=== PATIENT | female | born 1995 | race Caucasian/White ===

== ENCOUNTER → 2017-04-08 | Outpatient (CLI) | payer BC ==
--- NOTE | 2017-04-08 09:35 | CT ---
EXAMINATION TYPE: CT ankle LT wo con DATE OF EXAM: 04/08/2017 COMPARISON: NONE HISTORY: Ankle pain, possible talar fracture CT DLP: [address] of the left ankle with reconstruction imaging. TECHNIQUE: Unenhanced CT of the left ankle was performed with bone and soft tissue window settings rivero bmitted in the axial coronal and sagittal planes. At a separate workstation 3-D TR imaging was obtai karthik. FINDINGS: Small chip or avulsion fractures noted to arise from the lateral aspect of the talus. Chip fracture component measures 4 mm in length. There is also a small chip or avulsion fracture arising f rom the lateral malleolar tip measuring 3 mm. There is evidence of soft tissue swelling about the lat eral ankle. Medial malleolus is intact. Ankle mortise is within normal limits IMPRESSION: 1. Small chip or avulsion fractures arising from the lateral malleolar tip and lateral aspect of the talus.
== END | disposition home or self-care (01) ==
LOC: RADCTMAIN 08:41
PROVIDERS: ATTEND Orthopaedic Surgery
DX: S92.152A Displaced avulsion fracture (chip fracture) of left talus, initial encounter for closed fracture (principal)

== ENCOUNTER 2020-07-04 12:31 | Emergency (ER) | payer BC ==
[2020-07-04 12:57] VITALS: RESP 18
[2020-07-04] MEDS ORDERED: SODIUM CHLORIDE 0.9% 1,000 ML IV ONE (13:12)
[2020-07-04 13:56] LABS: Basophils # (A) 0.1 k/uL (0-0.2); Basophils % (A) 1 %; Eosinophils # (A) 0.4 k/uL (0-0.7); Eosinophils % (A) 2 %; HCT 40.8 % (34.0-46.0); HGB 13.8 gm/dL (11.4-16.0); Lymphocytes # (A) 2.9 k/uL (1.0-4.8); Lymphocytes % (A) 19 %; MCH 29.4 pg (25.0-35.0); MCHC 33.8 g/dL (31.0-37.0); MCV 86.8 fL (80.0-100.0); Mean Platelet Volume 7.2; Monocytes # (A) 0.7 k/uL (0-1.0); Monocytes % (A) 4 %; Neutrophils # (A) 11.1 k/uL (1.3-7.7); Neutrophils % (A) 72 %; Platelet Count 367 k/uL (150-450); RDW 11.4 % (11.5-15.5); WBC 15.4 k/uL (3.8-10.6)
--- NOTE | 2020-07-04 13:59 | ED ---
General Adult HPI - General Chief complaint: Urogenital Stated complaint: kidney stone Time Seen by Provider: 07/04/20 13:01 Source: patient, RN notes reviewed Mode of arrival: ambulatory Limitations: no limitations - History of Present Illness Initial comments: 25-year-old female presents to the emergency room for right flank and abdominal pain. Patient reports this pain has been going on for 2-3 months. However in the past day or so it has worsened. Patient states it is now in the upper abdomen as well. Patient reports that she has had a CAT scan which showed a kidney stone and an ultrasound that showed a fibroid but was told by her doctor to be should both not cause symptoms. No nausea vomiting. No diarrhea. Patient has no other complaints at this time including shortness of breath, chest pain, nausea or vomiting, headache, or visual changes. - Related Data Previous Rx's Medication Instructions Recorded Ibuprofen [Motrin] 600 mg PO Q6HR PRN #20 tab 07/04/20 Ondansetron [Zofran ODT] 4 mg PO Q8HR PRN #15 tab 07/04/20 Tamsulosin [Flomax] 0.4 mg PO DAILY #14 cap 07/04/20 Allergies Allergy/AdvReac Type Severity Reaction Status Date / Time No Known Allergies Allergy Verified 07/04/20 12:57 Review of Systems ROS Statement: Those systems with pertinent positive or pertinent negative responses have been documented in the HPI. ROS Other: All systems not noted in ROS Statement are negative. Past Medical History Past Medical History: No Reported History History of Any Multi-Drug Resistant Organisms: None Reported Past Surgical History: No Surgical Hx Reported Past Psychological History: No Psychological Hx Reported Smoking Status: Never smoker Past Alcohol Use History: Occasional Past Drug Use History: None Reported General Exam Limitations: no limitations General appearance: alert, in no apparent distress Head exam: Present: atraumatic, normocephalic, normal inspection Eye exam: Present: normal appearance, PERRL, EOMI. Absent: scleral icterus, conjunctival injection, periorbital swelling ENT exam: Present: normal exam, mucous membranes moist Neck exam: Present: normal inspection, full ROM. Absent: tenderness, meningismus, lymphadenopathy Respiratory exam: Present: normal lung sounds bilaterally. Absent: respiratory distress, wheezes, rales, rhonchi, stridor Cardiovascular Exam: Present: regular rate, normal rhythm, normal heart sounds. Absent: systolic murmur, diastolic murmur, rubs, gallop, clicks GI/Abdominal exam: Present: soft, tenderness (RUQ pain), normal bowel sounds. Absent: distended, guarding, rebound, rigid Back exam: Present: CVA tenderness (R). Absent: CVA tenderness (L) Neurological exam: Present: alert Course Vital Signs 07/04/20 12:53 Temperature 98.2 F Pulse Rate 81 Respiratory 18 Rate Blood Pressure 152/93 O2 Sat by Pulse 98 Oximetry Medical Decision Making - Medical Decision Making Outpatient imaging reports were reviewed. Patient had a CT abdomen and pelvis on 06/25/2020 demonstrated right-sided nephrolithiasis with a 5.5 cm calcific stone at the lower pole of the right kidney. Ultrasound of the abdomen showed no acute findings evident. Ultrasound of the pelvis done transvaginally showed no significant abnormality Ultrasound of the gallbladder was performed. No evidence of stones. However there is mild right-sided hydronephrosis with a 6 mm stone at the lower pole. I did also initiate laboratory evaluation. White blood cell count of 15 is likely reactive. CMP unremarkable. At this time patient will follow up with urology. She will return here for any worsening symptoms. - Lab Data Result diagrams: 07/04/20 13:37 07/04/20 13:37 Lab Results 07/04/20 07/04/20 07/04/20 Range/Units 13:37 13:37 13:37 WBC 15.4 H (3.8-10.6) k/uL RBC 4.70 (3.80-5.40) m/uL Hgb 13.8 (11.4-16.0) gm/dL Hct 40.8 (34.0-46.0) % MCV 86.8 (80.0-100.0) fL MCH 29.4 (25.0-35.0) pg MCHC 33.8 (31.0-37.0) g/dL RDW 11.4 L (11.5-15.5) % Plt Count 367 (150-450) k/uL MPV 7.2 Neutrophils % 72 % Lymphocytes % 19 % Monocytes % 4 % Eosinophils % 2 % Basophils % 1 % Neutrophils # 11.1 H (1.3-7.7) k/uL Lymphocytes # 2.9 (1.0-4.8) k/uL Monocytes # 0.7 (0-1.0) k/uL Eosinophils # 0.4 (0-0.7) k/uL Basophils # 0.1 (0-0.2) k/uL Sodium (137-145) mmol/L Potassium (3.5-5.1) mmol/L Chloride (98-107) mmol/L Carbon Dioxide (22-30) mmol/L Anion Gap mmol/L BUN (7-17) mg/dL Creatinine (0.52-1.04) mg/dL Est GFR (CKD-EPI)AfAm (>60 ml/min/1.73 sqM) Est GFR (CKD-EPI)NonAf (>60 ml/min/1.73 sqM) Glucose (74-99) mg/dL Calcium (8.4-10.2) mg/dL Total Bilirubin (0.2-1.3) mg/dL AST (14-36) U/L ALT (4-34) U/L Alkaline Phosphatase (38-126) U/L Total Protein (6.3-8.2) g/dL Albumin (3.5-5.0) g/dL Amylase (30-110) U/L Lipase (23-300) U/L Urine Color Yellow Urine Appearance Cloudy H (Clear) Urine pH 5.5 (5.0-8.0) Ur Specific [place] 1.026 (1.001-1.035) Urine Protein Trace H (Negative) Urine Glucose (UA) Negative (Negative) Urine Ketones Negative (Negative) Urine Blood Large H (Negative) Urine Nitrite Negative (Negative) Urine Bilirubin Negative (Negative) Urine Urobilinogen <2.0 (<2.0) mg/dL Ur Leukocyte Esterase Negative (Negative) Urine RBC 156 H (0-5) /hpf Urine WBC 2 (0-5) /hpf Ur Squamous Epith Cells 2 (0-4) /hpf Urine Bacteria Rare H (None) /hpf Urine Mucus Rare H (None) /hpf Urine HCG, Qual Not Detected (Not Detectd) 07/04/20 07/04/20 Range/Units 13:37 13:37 WBC (3.8-10.6) k/uL RBC (3.80-5.40) m/uL Hgb (11.4-16.0) gm/dL Hct (34.0-46.0) % MCV (80.0-100.0) fL MCH (25.0-35.0) pg MCHC (31.0-37.0) g/dL RDW (11.5-15.5) % Plt Count (150-450) k/uL MPV Neutrophils % % Lymphocytes % % Monocytes % % Eosinophils % % Basophils % % Neutrophils # (1.3-7.7) k/uL Lymphocytes # (1.0-4.8) k/uL Monocytes # (0-1.0) k/uL Eosinophils # (0-0.7) k/uL Basophils # (0-0.2) k/uL Sodium 139 (137-145) mmol/L Potassium 4.5 (3.5-5.1) mmol/L Chloride 108 H (98-107) mmol/L Carbon Dioxide 24 (22-30) mmol/L Anion Gap 7 mmol/L BUN 12 (7-17) mg/dL Creatinine 0.86 (0.52-1.04) mg/dL Est GFR (CKD-EPI)AfAm >90 (>60 ml/min/1.73 sqM) Est GFR (CKD-EPI)NonAf >90 (>60 ml/min/1.73 sqM) Glucose 99 (74-99) mg/dL Calcium 9.5 (8.4-10.2) mg/dL Total Bilirubin 0.3 (0.2-1.3) mg/dL AST 17 (14-36) U/L ALT 20 (4-34) U/L Alkaline Phosphatase 82 (38-126) U/L Total Protein 7.1 (6.3-8.2) g/dL Albumin 4.1 (3.5-5.0) g/dL Amylase 43 (30-110) U/L Lipase 68 (23-300) U/L Urine Color Urine Appearance (Clear) Urine pH (5.0-8.0) Ur Specific [place] (1.001-1.035) Urine Protein (Negative) Urine Glucose (UA) (Negative) Urine Ketones (Negative) Urine Blood (Negative) Urine Nitrite (Negative) Urine Bilirubin (Negative) Urine Urobilinogen (<2.0) mg/dL Ur Leukocyte Esterase (Negative) Urine RBC (0-5) /hpf Urine WBC (0-5) /hpf Ur Squamous Epith Cells (0-4) /hpf Urine Bacteria (None) /hpf Urine Mucus (None) /hpf Urine HCG, Qual (Not Detectd) Disposition Clinical Impression: Kidney stone Disposition: HOME SELF-CARE Condition: Good Instructions (If sedation given, give patient instructions): Kidney Stones (ED) Additional Instructions: Please Motrin for pain. If pain is severe take Tylenol 3. Take Zofran as needed for nausea. Take Flomax daily. Follow up with urology. Return to the emergency room for any worsening symptoms. Prescriptions: Tamsulosin [Flomax] 0.4 mg PO DAILY #14 cap Ibuprofen [Motrin] 600 mg PO Q6HR PRN #20 tab PRN Reason: Pain Ondansetron [Zofran ODT] 4 mg PO Q8HR PRN #15 tab PRN Reason: Nausea Is patient prescribed a controlled substance at d/c from ED?: No Referrals: Shauna Hall MD [Primary Care Provider] - 1-2 days Black Ambrosio MD [STAFF PHYSICIAN] - 1-2 days Time of Disposition: 15:21
[2020-07-04 14:02] LABS: Appearance,Urine Cloudy (Clear); Bacteria,Urine Rare /hpf; Bilirubin,Urine Negative (Negative); Blood,Urine Large (Negative); Color,Urine Yellow; Glucose,Urine (UA) Negative (Negative); Ketones,Urine Negative (Negative); Leukocyte Esterase,Urine Negative (Negative); Mucus,Urine Rare /hpf; Nitrite,Urine Negative (Negative); PH, Urine 5.5 (5.0-8.0); Protein,Urine Trace (Negative); RBC,Urine 156 /hpf (0-5); Specific Gravity,Urine 1.026 (1.001-1.035); Squamous Epithelial Cell,Urine 2 /hpf (0-4); Urobilinogen,Urine <2.0 mg/dL (<2.0); WBC,Urine 2 /hpf (0-5)
[2020-07-04] MEDS ORDERED: HYDROmorphone 0.5 MG/0.5 ML SYRINGE IVP STA (14:05)
[2020-07-04] MEDS ORDERED: ONDANSETRON 4 MG/2 ML VIAL IVP STA (14:05)
[2020-07-04 14:10] LABS: ALT 20 U/L (4-34); AST 17 U/L (14-36); African American GFR (CKD) >90 (>60 ml/min/1.73 sqM); Albumin 4.1 g/dL (3.5-5.0); Alkaline Phosphatase 82 U/L (38-126); Anion Gap 7 mmol/L; Blood Urea Nitrogen 12 mg/dL (7-17); Calcium 9.5 mg/dL (8.4-10.2); Carbon Dioxide 24 mmol/L (22-30); Chloride 108 mmol/L (98-107); Glucose 99 mg/dL (74-99); Non-African American GFR(CKD) >90 (>60 ml/min/1.73 sqM); Potassium 4.5 mmol/L (3.5-5.1); Sodium 139 mmol/L (137-145); Total Bilirubin 0.3 mg/dL (0.2-1.3); Total Protein 7.1 g/dL (6.3-8.2)
[2020-07-04 14:19] LABS: Amylase 43 U/L (30-110); Lipase 68 U/L (23-300)
--- NOTE | 2020-07-04 14:46 | US ---
EXAMINATION TYPE: US gallbladder DATE OF EXAM: 07/04/2020 COMPARISON: NONE CLINICAL HISTORY: pain. hematuria, right flank pain, nausea, history of right kidney stones EXAM MEASUREMENTS: Liver Length: 15.7 cm Gallbladder Wall: 0.3 cm CBD: 0.4 cm Right Kidney: 11.6 x 6.4 x 5.3 cm Technical limitations due to patient's body habitus and large amount of overlying bowel content Pancreas: Obscured by bowel gas Liver: appears wnl Gallbladder: no evidence of stones Evidence for sonographic Christie's sign: no CBD: appears wnl Right Kidney: mild hydronephrosis, echogenic focus = 0.6cm lower pole IMPRESSION: 1. Mild right hydronephrosis. 2. Nonobstructing renal stone inferior pole right kidney.
[2020-07-04] MEDS ORDERED: KETOROLAC 15 MG/ML 1 ML VIAL IVP STA (14:49)
--- NOTE | 2020-07-04 15:07 | XR ---
EXAMINATION TYPE: XR KUB portable DATE OF EXAM: 07/04/2020 COMPARISON: None INDICATION: Right side pain TECHNIQUE: Single view abdomen frontal projection FINDINGS: There is a nonspecific bowel gas pattern. Small bowel loops and colon are present. No mass effect is evident. Psoas margins are normal. No organomegaly is present. No suspicious calcifications. IMPRESSION: 1. Unremarkable Abdomen
[2020-07-04] MEDS ORDERED: ACET/COD 300 MG/30 MG STARTER PACK 6 TAB BTL PO STA (15:22)
[2020-07-04 15:55] VITALS: BP 138/72; PULSE 72; TEMP 98.3
== END 2020-07-04 15:42 | disposition home or self-care (01) ==
LOC: EC 12:31
DX: N13.2 Hydronephrosis with renal and ureteral calculous obstruction (principal)
CPT/HCPCS: 36415; 80053; 82150; 83690; 85025; 81001; 81025; 74018; 76705; 99284; 96374; 96375 ×2; 96361; J2405; J1885; J1170

== ENCOUNTER 2020-07-15 12:18 | Day surgery (SDC) | payer BC ==
[2020-07-08 13:10] VITALS: BMI 39.5
--- NOTE | 2020-07-13 10:23 | P.GSHP ---
History of Present Illness H&P Date: 07/13/20 Chief Complaint: Right flank pain The patient is a 25-year-old white female with no prior history of urolithiasis. She presents with a two-month history of right flank pain radiating to the right lower abdomen. CT scan shows a 5.5 mm right lower pole renal calculus with no evidence of hydronephrosis. - Constitutional Constitutional: Denies chills, Denies fever - Gastrointestinal Gastrointestinal: Reports nausea - Genitourinary (Female) Genitourinary: Reports flank pain, Reports hematuria, Reports kidney stones Past Medical History Past Medical History: No Reported History Additional Past Medical History / Comment(s): KIDNEY STONES-SEEN IN ER 07/04/20 History of Any Multi-Drug Resistant Organisms: None Reported Past Surgical History: No Surgical Hx Reported Additional Past Surgical History / Comment(s): COLONOSCOPY/EGD Past Anesthesia/Blood Transfusion Reactions: No Reported Reaction Smoking Status: Never smoker - Past Family History Mother Family Medical History: No Reported History Medications and Allergies Home Medications Medication Instructions Recorded Confirmed Type Ibuprofen [Motrin] 600 mg PO Q6HR PRN #20 tab 07/04/20 07/08/20 Rx Ondansetron [Zofran ODT] 4 mg PO Q8HR PRN #15 tab 07/04/20 07/08/20 Rx Ketorolac [Toradol] 10 mg PO Q6HR PRN 07/08/20 07/08/20 History Levonorgestrel-Ethin Estradiol 1 tab PO HS 07/08/20 07/08/20 History [Levora-28 Tablet] Allergies Allergy/AdvReac Type Severity Reaction Status Date / Time No Known Allergies Allergy Verified 07/08/20 12:32 Surgical - Exam - General well developed, well nourished, no distress - Respiratory normal respiratory effort, clear to auscultation - Cardiovascular Rhythm: regular Abnormal Heart Sounds: no systolic murmur, no diastolic murmur, no rub, no S3 Gallop, no S4 Gallop, no click, no other - Abdomen Abdomen: soft, tender (Right-sided tenderness to palpation), no guarding, no rigid, no rebound, no distended - Psychiatric oriented to time, oriented to person, oriented to place, speech is normal, memory intact Results - Imaging CT scan - abdomen: report reviewed Assessment and Plan (1) Kidney stone Status: Acute Code(s): N20.0 - CALCULUS OF KIDNEY SNOMED Code(s): 95037079 Plan: I had a lengthy discussion with the patient regarding her right lower pole renal calculus. She was offered the options of extracorporal shockwave lithotripsy (ESWL) versus ureteroscopy with laser lithotripsy. The pros, cons, and risks of each were reviewed in detail. She has elected to undergo ureteroscopic removal of the calculus. She understands the probable need for a ureteral stent postoperatively. She is aware of potential risks, which include anesthesia, bleeding, infection, stent pain, and ureteral injury.
[~2020-07-15 12:18] MED LIST: DEXAMETHASONE SOD PHOSPHATE 4 MG/ML 1 ML VIAL IV ONE; HYDROmorphone 0.5 MG/0.5 ML SYRINGE IVP PRN; LACTATED RINGERS 1,000 ML IV SCH; LIDOCAINE 1% (10MG/ML) FOR IV START INTRADERMA PRN; MIDAZOLAM 2 MG/2 ML VIAL IV PRN; ONDANSETRON 4 MG/2 ML VIAL IVP ONE
--- NOTE | 2020-07-15 12:43 | XR ---
EXAMINATION TYPE: XR KUB DATE OF EXAM: 07/15/2020 COMPARISON: 07/04/2020 HISTORY: Presurgical TECHNIQUE: One view abdominal series FINDINGS: Hypertrophic change of the acetabulum can be associated with femoral acetabular impingement. Spina bi fida occulta of the sacrum. Right kidney: No suspicious calcifications, however, there is a radiodense 3 mm calcification overlyi ng the right transverse process of L2. Left kidney: No suspicious calcifications identified. Pelvis: There are 2 punctate 2 mm or less calcifications in the right hemipelvis at the level of the ischial spine. IMPRESSION: 1. Findings are suspicious for a proximal right ureteral calculus measuring 3 mm in diameter overlyin g the right transverse process of L2. 2. Indeterminant right hemipelvic calcifications. Potentially within the distal right ureter.
[2020-07-15] MEDS ORDERED: KETAMINE 10 MG/ML 20 ML VIAL ONE (15:38)
[2020-07-15] MEDS ORDERED: PROPOFOL 10 MG/ML 20 ML VIAL IV ONE (15:38)
[2020-07-15] MEDS ORDERED: GLYCOPYRROLATE 0.2 MG/ML 2 ML VIAL ONE (15:38)
[2020-07-15] MEDS ORDERED: MIDAZOLAM 2 MG/2 ML VIAL ONE (15:38)
[2020-07-15] MEDS ORDERED: fentaNYL (PF) 50 MCG/ML 2 ML AMP ONE (15:38)
[2020-07-15] MEDS ORDERED: KETOROLAC 15 MG/ML 1 ML VIAL ONE (15:38)
[2020-07-15] MEDS ORDERED: LIDOCAINE 1% INJ 10MG/ML (20 ML MDV) ONE (15:38)
[2020-07-15] MEDS ORDERED: LACTATED RINGERS 1,000 ML IV ONE (15:48)
[2020-07-15] MEDS ORDERED: HYDROmorphone 0.5 MG/0.5 ML SYRINGE IVP ONE (17:15)
[2020-07-15 17:17] VITALS: TEMP 97.1
--- NOTE | 2020-07-15 17:24 | P.OP ---
Date of Procedure: 07/15/20 Preoperative Diagnosis: Right renal calculus Postoperative Diagnosis: Same Procedure(s) Performed: Cystoscopy, right ureteroscopy with Holmium laser lithotripsy and stone basketing, right ureteral stent insertion Anesthesia: BREAA Surgeon: Shaun Fenton Estimated Blood Loss (ml): 5 IV fluids (ml): 1,000 Condition: stable Disposition: PACU Indications for Procedure: The patient is a 25-year-old white female with no prior history of urolithiasis. She presents with a two-month history of right flank pain radiating to the right lower abdomen. CT scan shows a 5.5 mm right lower pole renal calculus with no evidence of hydronephrosis. Operative Findings: 6 mm right renal pelvic calculus, dense, fragmented completely. Description of Procedure: The patient was taken to the operating room and placed in the dorsolithotomy position, with legs supported in Vincent stirrups. The external genitalia was prepped and draped sterilely. The 30 lens was used to introduce the 21-Malagasy Nino cystoscopic sheath through the urethra and into the bladder under direct vision. The bladder was examined in its entirety. Both ureteral orifices were normal anatomic location and configuration. No tumors or foreign bodies were seen. A 10-Malagasy cone-tipped catheter was passed through the cystoscope, and the right ureteral orifice was cannulated to dilate the orifice. The Nino beverly flexible ureteroscope was passed into the bladder, but the right ureteral orifice could not be cannulated. A 0.035 inch Glidewire was passed through the ureteroscope and up the ureter, but the ureteroscope could not be advanced over the wire. Therefore, the ureteroscope was removed, and an 11/13-Malagasy ureteral access catheter was passed over the wire, up to the proximal ureter. The flexible ureteroscope was then passed through the ureteral access catheter sheath, up to the stone. Within the right proximal ureter was an area of edema, suggesting that the calculus may have migrated into the proximal ureter and become dislodged at the time of wire placement. The calculus was identified within the renal pelvis. The 200 micron Holmium laser probe was passed through the ureteroscope, and lithotripsy was performed. A dusting technique was initially utilized, as the peripheral portion of the calculus was not dense. However, the core of the calculus was very dense, and therefore a fragmenting was performed. The largest 2 calculus fragments were removed using a 1.9-Malagasy nitinol basket, but these fragments were only approximately 1 mm in size. The remaining fragments were no larger than the size of the laser fiber tip. No additional calculi were seen. The Glidewire was passed through the ureteroscope, which was removed along with the ureteral access catheter sheath. The Glidewire was backloaded into the cystoscope, which was passed into the bladder. A 24 cm, 4.8-Malagasy double-J ureteral stent was placed over the wire. Proper stent positioning was verified fluoroscopically and endoscopically. The bladder was emptied and the cystoscope removed. The patient tolerated the procedure well and was taken to the recovery room in stable condition. [facility] [place] Report: Procedure Acuity: Elective Stone Size and Location: 6 mm, right renal pelvis Ureteral Dilation: No Ureteral Access Sheath Used: Yes Stone Sent for Analysis: Yes All Stones/Fragments Were Removed with a Basket: No Complications: No Preoperative Antibiotics Given: Yes Stent Placed: Yes If Stent Placed, Was String Left Attached: No If Stent Placed, When is it to be Removed: 1 week Discharge Medications: Oxybutynin chloride
[2020-07-15 18:08] VITALS: RESP 16
[2020-07-15 18:48] VITALS: BP 119/75; PULSE 68
--- NOTE | 2020-07-16 07:07 | FL ---
Fluoroscopy HISTORY: Kidney stone, stent placement 20 seconds fluoroscopy time supplied to the referring clinician. 1 intraoperative C-arm images docum ent the procedure. See dictated report from urology.
== END 2020-07-15 19:18 | disposition home or self-care (01) ==
LOC: OR 12:18
PROVIDERS: ATTEND Urology
DX: N20.0 Calculus of kidney (principal); N28.89 Other specified disorders of kidney and ureter; K21.9 Gastro-esophageal reflux disease without esophagitis; Z98.890 Other specified postprocedural states; Z79.3 Long term (current) use of hormonal contraceptives
CPT/HCPCS: 82365; 74018; 52356; C2625; C1758; C1769; C1894; J2250; J1100; J0690; J2405; J2001; J3010; J1885; J2704; J1170

== ENCOUNTER → 2020-08-21 | Outpatient (CLI) | payer BC ==
--- NOTE | 2020-08-21 16:57 | XR ---
EXAMINATION TYPE: XR KUB DATE OF EXAM: 08/21/2020 COMPARISON: 07/15/2020 INDICATION: Renal calculus right side TECHNIQUE: Single view abdomen FINDINGS: There is a normal bowel gas pattern. Psoas margins are normal. No organomegaly is present. The previous calcification in the proximal right ureter overlying L2 transverse process is not eviden t on the current exam. Couple phleboliths appears stable within the right hemipelvis. IMPRESSION: 1. Nonspecific abdomen. Suspicious right renal or ureteral stones are not identified.
--- NOTE | 2020-08-21 17:02 | US ---
EXAMINATION TYPE: US kidneys/renal and bladder DATE OF EXAM: 08/21/2020 COMPARISON: NONE CLINICAL HISTORY: N20.0 Calculus of Kidney. EXAM MEASUREMENTS: Right Kidney: 10.4 x 5.5 x 4.4 cm Left Kidney: 10.1 x 6.4 x 5.9 cm Patient of large body habitus. Technically difficult, limited study. Right Kidney: Inferior pole obscured by bowel gas, limited visualization due to body habitus Left Kidney: Portions of superior pole and inferior pole obscured by bowel gas, limited visualization due to body habitus. No suspicious hydronephrosis is evident. No shadowing renal calculi are identif ied Bladder: wnl IMPRESSION: 1. Renal ultrasound as visualized appears unremarkable. 2. There is limitation due to body habitus and bowel gas.
== END | disposition home or self-care (01) ==
LOC: RADUSWWP 16:10
PROVIDERS: ATTEND Urology
DX: R14.3 Flatulence (principal)
CPT/HCPCS: 74018; 76770